=== PATIENT | male | born 1975 | race Caucasian/White ===

== ENCOUNTER 2016-06-06 12:09 | Emergency (ER) | payer OTHER ==
[~2016-06-06] VITALS: Ht 188 cm; Wt 185.0 kg
[~2016-06-06 12:09] MED LIST: ALBU1AER INH; AMLO5TAB2 PO; CETI10 PO; IPRA0.02 INH; LISI-515 PO; TRAZ150T75 PO
[2016-06-06 12:10] VITALS: BP 177/71; PULSE 74; RESP 20; TEMP 98; O2SAT 96
--- NOTE | 2016-06-06 12:39 | PD ---
Physical Exam Date Seen by Provider: Jun 06, 2016 Time Seen by Provider: 12:36 Narrative Pt presents to the ED with a rash to right axilla for the last 3 days. Pt has been applying Desitin cream with no improvement. Rash is itching and sore appears to be getting worse. Pt unable to see PCP Dr. Barksdale but could not secure an appt. PMHx significant for HTN and asthma. No other complaints. VSS. Awaiting bed placement. Data Data Last Documented VS Vital Signs Date Time Temp Pulse Resp B/P Pulse Ox O2 Delivery O2 Flow Rate FiO2 06/06/16 12:10 98.0 74 20 177/71 96 Room Air MDM Supervised Visit with ARCADIO: Mary Lou Lala Jun 06, 2016 12:39
--- NOTE | 2016-06-06 12:49 | PD ---
HPI . right axilla rash Chief Complaint: Skin Problem Time Seen by Provider: 12:49 Travel History International Travel<30 days: No Contact w/Intl Traveler<30days: No Traveled to known affect area: No History of Present Illness HPI 40-year-old male who is well-known to me from [facility] here with complaints of right axilla itching and rash for the past several days. Patient goes to the community clinic, however says he has been unable to secure an appointment. He denies any fever or chills. PFSH Past Medical History Asthma: Yes Cardiovascular Problems: Yes (HTN) Hypertension: Yes Respiratory: Yes (ASTHMA) Social History Alcohol Use: Yes Tobacco Use: No Substance Use: No Allergies-Medications (Allergen,Severity, Reaction): Coded Allergies: No Known Allergies (Verified , 02/01/16) Reported Meds & Prescriptions Reported Meds & Active Scripts Active Lisinopril 20 Mg Tab 20 Mg PO DAILY Amlodipine (Amlodipine Besylate) 5 Mg Tab 5 Mg PO DAILY Trazodone (Trazodone HCl) 150 Mg Tab 150 Mg PO HS Proair Hfa (Albuterol Sulfate) 8.5 Gm Aero 2 Puff INH Q6 * SHAKE WELL BEFORE USE * Atrovent Ud 0.02% (0.5 Mg/2.5 Ml) (Ipratropium [place]) 0.5 Mg/2.5 Ml Nebu 0.5 Mg INH QID Reported Cetirizine (Cetirizine HCl) 10 Mg Tab 10 Mg PO DAILY Review of Systems General / Constitutional: No: Fever Eyes: No: Visual changes HENT: No: Headaches Cardiovascular: No: Chest Pain or Discomfort Respiratory: No: Shortness of Breath Gastrointestinal: No: Abdominal Pain Genitourinary: No: Dysuria Musculoskeletal: No: Pain Skin: Positive Rash, Positive Itching Neurologic: No: Weakness Psychiatric: No: Depression Endocrine: No: Polydipsia Hematologic/Lymphatic: No: Easy Bruising Physical Exam Narrative GENERAL: AAO x 3, no acute distress, Well-nourished, well-developed patient. SKIN: Warm and dry. No visible rashes or bruising. right axilla with jessica intertrigo, very mild, no broken skin, no cellulitis HEAD: Normocephalic and atraumatic. EYES: No scleral icterus. No injection or drainage. ENT: No nasal drainage noted. Mucous membranes pink. Airway patent. NECK: Supple, trachea midline. No JVD. CARDIOVASCULAR: Regular rate and rhythm without murmurs, gallops, or rubs. RESPIRATORY: Breath sounds equal bilaterally. No accessory muscle use. No rhonchi or rales. GASTROINTESTINAL: Abdomen soft, non-tender, nondistended. EXTREMITIES: No cyanosis or edema. BACK: Nontender without obvious deformity. No CVA tenderness. PSYCH: AAO x 3, normal affect. Data Data Last Documented VS Vital Signs Date Time Temp Pulse Resp B/P Pulse Ox O2 Delivery O2 Flow Rate FiO2 06/06/16 12:10 98.0 74 20 177/71 96 Room Air MDM Medical Decision Making Medical Screen Exam Complete: Yes Emergency Medical Condition: No Medical Record Reviewed: Yes Differential Diagnosis intertrigo, less likely cellulitis, less likely shingles Narrative Course 40-year-old male who is well-known to me from community clinic here with complaints of right axilla itching and rash for the past several days. Patient goes to the community clinic, however says he has been unable to secure an appointment. He denies any fever or chills. Patient seen and examined. He has an intertrigo to the right axilla. It is not severe. I have personally called over to the community clinic and he was offered an appointment at 9:30 AM tomorrow morning, but declined and now has an appointment tomorrow at 4 PM. A medical screening exam was performed: At the time of evaluation the presenting medical condition was determined not to be of an emergent nature. The patient was given the option of receiving additional care, but declined. Patient was given options for additional community resources from which to obtain care. The Patient Has Been advised to seek medical attention for their presenting complaint. The patient has been advised to return to the ER at any time if an emergent condition develops. Diagnosis Primary Impression: Encounter for medical screening examination Condition: Stable Shelby Ireland Jun 06, 2016 12:49
[2016-06-08] MEDS ORDERED: NYST15T TOPICAL (11:14)
[2016-06-26] MEDS ORDERED: DIFL100T PO (08:28)
[2016-07-11] MEDS ORDERED: LISI-515 PO (20:17)
[2016-07-11] MEDS ORDERED: AMLO5TAB2 PO (20:18)
[2016-08-08] MEDS ORDERED: LISI-515 PO (10:59)
== END 2016-06-06 13:06 | disposition left against medical advice (07) ==
LOC: NEPK 12:09
DX: R21 Rash and other nonspecific skin eruption (principal)
CPT/HCPCS: 99281

== ENCOUNTER → 2016-11-06 | Outpatient (CLI) | payer OTHER ==
[~2016-11-06] MED LIST changes: -ALBU1AER INH; +ALBU6.7H INH; -IPRA0.02 INH; +IPRA0.02 NEB; -TRAZ150T75 PO
[2016-11-06 13:45] LABS: ALT (GPT) 31 U/L (12-78); ANION GAP 5 MEQ/L (5-15); AST (GOT) 16 U/L (15-37); BICARBONATE 30.3 MEQ/L (21.0-32.0); BLOOD UREA NITROGEN 9 MG/DL (7-18); CHLORIDE 102 MEQ/L (98-107); GLOMERULAR FILTRATION RATE 76 ML/MIN (>89); GLUCOSE,FASTING 101 MG/DL (74-99); POTASSIUM 4.2 MEQ/L (3.5-5.1); SODIUM (NA) 137 MEQ/L (136-145)
[2016-11-06 13:47] LABS: ALKALINE PHOSPHATASE 66 U/L (45-117); HDL CHOLESTEROL 38.7 MG/DL (40.0-60.0); LDL CHOLESTEROL 129 MG/DL (0-99); TOTAL BILIRUBIN ADULT 0.4 MG/DL (0.2-1.0)
== END ==
LOC: CLAB 12:52
PROVIDERS: ATTEND Nurse Practitioner Family
DX: I10 Essential (primary) hypertension (principal); E78.5 Hyperlipidemia, unspecified
CPT/HCPCS: 36415; 80053; 80061

== ENCOUNTER 2017-04-03 07:26 | Emergency (ER) | payer OTHER ==
[~2017-04-03] VITALS: Ht 185.4 cm; Wt 184.0 kg
[2017-04-03 07:31] VITALS: BP 166/96; PULSE 85; RESP 16; TEMP 98.2; O2SAT 99
[2017-04-03] MEDS ORDERED: SODIUM CHLORIDE 0.9% FLUSH 10 ML FLUSH IVF PRN (07:45)
[2017-04-03] MEDS ORDERED: FISHCAP4 PO (07:50)
[2017-04-03] MEDS ORDERED: MAGN500T2 PO (07:52)
--- NOTE | 2017-04-03 07:52 | PD ---
HPI Chief Complaint: Cardiac Complaint Time Seen by Provider: 07:42 Travel History International Travel<30 days: No Contact w/Intl Traveler<30days: No Traveled to known affect area: No History of Present Illness HPI 41-year-old male patient presents to the ER today for 1 week history of not being able to sleep, several days history of palpitations. He denies any chest pains, shortness of breath, lightheadedness, or any other symptoms. He states that he has only been able to get an hour or so of sleep each day. He denies any suicidal or homicidal ideation. Modifying Factors: None Associated Signs & Symptoms: Palpitations, insomnia Risk Factors: None PFSH Past Medical History Asthma: Yes Cardiovascular Problems: Yes (HTN) Hypertension: Yes Respiratory: Yes (ASTHMA) Social History Alcohol Use: Yes Tobacco Use: No Substance Use: No Allergies-Medications (Allergen,Severity, Reaction): Coded Allergies: No Known Allergies (Verified Adverse Reaction, Unknown, 04/03/17) Reported Meds & Prescriptions Reported Meds & Active Scripts Active Proventil Hfa 6.7 GM Inh (Albuterol Sulfate) 90 Mcg/Act Aer 2 Puff INH Q4-6H PRN Ipratropium Neb (Ipratropium [place]) 0.5 Mg/2.5 Ml Amp 0.5 Mg NEB Q12HR NEB Amlodipine (Amlodipine Besylate) 5 Mg Tab 5 Mg PO DAILY Lisinopril 20 Mg Tab 20 Mg PO DAILY Reported Magnesium Oxide 500 Mg Tab 500 Mg PO DAILY Fish Oil + D3 (Fish Oil-Cholecalciferol) 1,200-1,000 Mg-Unit Cap 1 Cap PO DAILY Cetirizine (Cetirizine HCl) 10 Mg Tab 10 Mg PO DAILY Review of Systems Except as stated in HPI: all other systems reviewed are Neg Physical Exam Narrative GENERAL: Well-developed middle-age male patient who appears mildly anxious. Awake and oriented 3. SKIN: Focused skin assessment warm/dry. HEAD: Atraumatic. Normocephalic. EYES: Pupils equal and round. No scleral icterus. No injection or drainage. ENT: No nasal bleeding or discharge. Mucous membranes pink and moist. NECK: Trachea midline. No JVD. Supple. CARDIOVASCULAR: Regular rate and rhythm. No murmur appreciated. RESPIRATORY: No accessory muscle use. Clear to auscultation. Breath sounds equal bilaterally. GASTROINTESTINAL: Abdomen soft, non-tender, nondistended. Hepatic and splenic margins not palpable. MUSCULOSKELETAL: No obvious deformities. No clubbing. No cyanosis. No edema. NEUROLOGICAL: Awake and alert. No obvious cranial nerve deficits. Motor grossly within normal limits. Normal speech. PSYCHIATRIC: Appropriate mood and affect; insight and judgment normal. Data Data Last Documented VS Vital Signs Date Time Temp Pulse Resp B/P (MAP) Pulse Ox O2 Delivery O2 Flow Rate FiO2 04/03/17 07:55 89 14 130/74 (92) 99 04/03/17 07:47 Room Air 04/03/17 07:31 98.2 Orders Orders Electrocardiogram (04/03/17 ) Electrocardiogram (04/03/17 07:42) Ckmb (Isoenzyme) Profile (04/03/17 07:42) Complete Blood Count With Diff (04/03/17 07:42) Comprehensive Metabolic Panel (04/03/17 07:42) D-Dimer (04/03/17 07:42) Magnesium (Mg) (04/03/17 07:42) Prothrombin Time / Inr (Pt) (04/03/17 07:42) Act Partial Throm Time (Ptt) (04/03/17 07:42) Troponin I (04/03/17 07:42) Chest, Single Ap (04/03/17 07:42) Ecg Monitoring (04/03/17 07:42) Bilateral Bp Monitoring (04/03/17 07:42) Iv Access Insert/Monitor (04/03/17 07:42) Oximetry (04/03/17 07:42) Oxygen Administration (04/03/17 07:42) Sodium Chloride 0.9% Flush (Ns Flush) (04/03/17 07:45) CKMB (04/03/17 07:45) CKMB% (04/03/17 07:45) Labs Laboratory Tests Test 04/03/17 07:45 White Blood Count 13.5 TH/MM3 Red Blood Count 5.63 MIL/MM3 Hemoglobin 16.1 GM/DL Hematocrit 48.1 % Mean Corpuscular Volume 85.4 FL Mean Corpuscular Hemoglobin 28.5 PG Mean Corpuscular Hemoglobin Concent 33.4 % Red Cell Distribution Width 14.2 % Platelet Count 390 TH/MM3 Mean Platelet Volume 7.9 FL Neutrophils (%) (Auto) 54.6 % Lymphocytes (%) (Auto) 36.3 % Monocytes (%) (Auto) 7.4 % Eosinophils (%) (Auto) 0.8 % Basophils (%) (Auto) 0.9 % Neutrophils # (Auto) 7.4 TH/MM3 Lymphocytes # (Auto) 4.9 TH/MM3 Monocytes # (Auto) 1.0 TH/MM3 Eosinophils # (Auto) 0.1 TH/MM3 Basophils # (Auto) 0.1 TH/MM3 CBC Comment DIFF FINAL Differential Comment Prothrombin Time 10.1 SEC Prothromb Time International Ratio 1.0 RATIO Activated Partial Thromboplast Time 26.1 SEC D-Dimer Quantitative (PE/DVT) 0.21 MG/L FEU Blood Urea Nitrogen 9 MG/DL Creatinine 1.12 MG/DL Random Glucose 121 MG/DL Total Protein 8.0 GM/DL Albumin 3.8 GM/DL Calcium Level 8.7 MG/DL Magnesium Level 2.3 MG/DL Alkaline Phosphatase 68 U/L Aspartate Amino Transf (AST/SGOT) 21 U/L Alanine Aminotransferase (ALT/SGPT) 26 U/L Total Bilirubin 0.6 MG/DL Sodium Level 135 MEQ/L Potassium Level 3.6 MEQ/L Chloride Level 101 MEQ/L Carbon Dioxide Level 25.2 MEQ/L Anion Gap 9 MEQ/L Estimat Glomerular Filtration Rate 72 ML/MIN Total Creatine Kinase 283 U/L Troponin I LESS THAN 0.02 NG/ML [facility] Medical Decision Making Medical Screen Exam Complete: Yes Emergency Medical Condition: Yes Medical Record Reviewed: Yes Interpretation(s) EKG shows NSR, no ST elevation or depression, and no arrhythmias. No significant T-wave inversions. Laboratory Tests Test 04/03/17 07:45 White Blood Count 13.5 TH/MM3 (4.0-11.0) Lymphocytes # (Auto) 4.9 TH/MM3 (1.0-4.8) Monocytes # (Auto) 1.0 TH/MM3 (0-0.9) Random Glucose 121 MG/DL (74-106) Sodium Level 135 MEQ/L (136-145) Estimat Glomerular Filtration Rate 72 ML/MIN (>89) Troponin I LESS THAN 0.02 NG/ML Last 24 hours Impressions Chest X-Ray 04/03/17 0792 Signed Impressions: Service Date/Time: Monday, April 03, 2017 07:49 - CONCLUSION: No acute disease. Kang Levi Jr., MD Differential Diagnosis Palpitations: Dysrhythmias versus ACS versus dehydration versus metabolic issues Narrative Course Patient is well-appearing, vital signs are stable in the ER. He does appear mildly anxious but denies any significant sources of stress. He states that he just is having trouble sleeping. Lab work otherwise was unremarkable and EKG does not show dysrhythmias. At this point, I suspect that symptoms may be secondary to the insomnia. My plan would be to give him treatment for insomnia. He should follow-up with primary care doctor. Avoid caffeine intake , sleep hygiene techniques. Return for any worsening in symptoms as necessary. The plan has been discussed with him and he states understanding. Diagnosis Primary Impression: Insomnia Additional Impression: Palpitations Med/Other Pt SpecificInfo: Prescription(s) given Scripts Zolpidem (Ambien) 5 Mg Tab 5 MG PO HS Y for INSOMNIA, #14 TAB 0 Refills Prov: Janes Pollard MD 04/03/17 Disposition: DISCHARGE HOME Condition: Stable Janes Pollard MD Apr 03, 2017 07:52
[2017-04-03 07:55] VITALS: BP 130/74; PULSE 89; RESP 14; O2SAT 99
--- NOTE | 2017-04-03 08:18 | RADRPT ---
EXAM DATE/TIME: 04/03/2017 07:49 [facility] COMPARISON: No previous studies available for comparison. INDICATIONS : Palpitations. MEDICAL HISTORY : Hypertension. Asthma SURGICAL HISTORY : None. ENCOUNTER: Initial ACUITY: 1 day PAIN SCORE: 0/10 LOCATION: Bilateral chest FINDINGS: A single view of the chest demonstrates the lungs to be symmetrically aerated without evidence of mas s, infiltrate or effusion. The cardiomediastinal contours are unremarkable. Osseous structures are intact. CONCLUSION: No acute disease. Kang Levi Jr., MD on April 03, 2017 at 8:15 Board Certified Radiologist. This report was verified electronically.
[2017-04-03 08:37] LABS: AUTOMATED NEUTROPHIL # 7.4 TH/MM3 (1.8-7.7); BASOPHIL # 0.1 TH/MM3 (0-0.2); BASOPHIL % 0.9 % (0.0-2.0); EOSINOPHIL # 0.1 TH/MM3 (0-0.4); EOSINOPHIL % 0.8 % (0.0-4.0); HEMATOCRIT 48.1 % (39.0-51.0); HEMOGLOBIN 16.1 GM/DL (13.0-17.0); LYMPH % 36.3 % (9.0-44.0); LYMPHOCYTE # 4.9 TH/MM3 (1.0-4.8); MEAN CELL VOLUME 85.4 FL (80.0-100.0); MEAN CORPUSCULAR HEMOGLOBIN 28.5 PG (27.0-34.0); MEAN CORPUSCULAR HGB CONC 33.4 % (32.0-36.0); MEAN PLATELET VOLUME 7.9 FL (7.0-11.0); MONO % 7.4 % (0.0-8.0); NEUT % 54.6 % (16.0-70.0); PLATELET COUNT 390 TH/MM3 (150-450); RED BLOOD COUNT 5.63 MIL/MM3 (4.50-5.90); RED CELL DISTRIBUTION WIDTH 14.2 % (11.6-17.2); WHITE BLOOD COUNT 13.5 TH/MM3 (4.0-11.0)
[2017-04-03 08:49] LABS: PROTHROMBIN TIME - PATIENT 10.1 SEC (9.8-11.6)
[2017-04-03 08:50] LABS: D-DIMER 0.21 MG/L FEU (0.00-0.50)
[2017-04-03 08:55] LABS: ALBUMIN 3.8 GM/DL (3.4-5.0); ALT (GPT) 26 U/L (12-78); AST (GOT) 21 U/L (15-37); BICARBONATE 25.2 MEQ/L (21.0-32.0); BLOOD UREA NITROGEN 9 MG/DL (7-18); CALCIUM 8.7 MG/DL (8.5-10.1); CHLORIDE 101 MEQ/L (98-107); CREATININE 1.12 MG/DL (0.60-1.30); GLOMERULAR FILTRATION RATE 72 ML/MIN (>89); GLUCOSE,RANDOM 121 MG/DL (74-106); MAGNESIUM 2.3 MG/DL (1.5-2.5); SODIUM (NA) 135 MEQ/L (136-145)
[2017-04-03 08:59] LABS: ALKALINE PHOSPHATASE 68 U/L (45-117); TOTAL BILIRUBIN ADULT 0.6 MG/DL (0.2-1.0); TROPONIN I LESS THAN 0.02 NG/ML (0.02-0.05)
[2017-04-03] MEDS ORDERED: AMBI5TAB PO (09:10)
[2017-04-03 10:01] VITALS: BP 125/61; PULSE 79; RESP 16; O2SAT 99
[2017-04-03 10:49] LABS: TROPONIN I LESS THAN 0.02 NG/ML (0.02-0.05)
[2017-04-03 11:42] VITALS: BP 123/74; PULSE 75; RESP 14; O2SAT 99
--- NOTE | 2017-04-03 20:36 | EKG ---
Date Performed: 04/03/2017 Time Performed: 07:42:36 PTAGE: 41 years EKG: Sinus rhythm LOW QRS VOLTAGE IN PRECORDIAL LEADS BORDERLINE ECG INTERPRETATION BASED ON A DEFAULT AGE OF 40 YEARS NO PREVIOUS TRACING DOCTOR: Danish Louis Interpretating Date/Time 04/03/2017 20:35:30
== END 2017-04-03 11:44 | disposition home or self-care (01) ==
LOC: NEPC 07:26
DX: G47.00 Insomnia, unspecified (principal); R00.2 Palpitations; J45.909 Unspecified asthma, uncomplicated; I10 Essential (primary) hypertension; Z79.899 Other long term (current) drug therapy
CPT/HCPCS: 71045; 80053; 82550; 82552; 83735; 84484; 85025; 85379; 85610; 85730; 93005; 99285